=== PATIENT | female | born 1960 | race Two or more races ===

== ENCOUNTER 2022-05-23 12:26 | Emergency (ER) | payer OTHER ==
[~2022-05-23] VITALS: Ht 167.6 cm; Wt 63.5 kg
== END 2022-05-23 15:17 | disposition home or self-care (01) ==
LOC: ER 12:26
DX: S80.862A Insect bite (nonvenomous), left lower leg, initial encounter (principal); S80.861A Insect bite (nonvenomous), right lower leg, initial encounter